=== PATIENT | male | born 1960 | race Caucasian/White ===

== ENCOUNTER → 2017-10-19 | Outpatient (CLI) | payer BC ==
--- NOTE | 2017-10-19 10:28 | P.STRESS ---
- Stress Test Note Stress Test Results/Findings: Exam Performed: NM stress cardiolite complete Exam Date: 10/19/17 Reason for Exam: Physical, CAD Height: 6 ft 3 in Weight: 131.542 kg Protocol: David Cardiolite Stage: 3 Duration of Exercise: 10:30 Resting Heart Rate: 77 Resting Blood Pressure: 127/91 Maximum Achieved Heart Rate: 145 Maximum Achieved Blood Pressure: 190/66 85% PMHR: 139 100% PMHR: 163 METS: 12.1 Technologist Comment: Stress Test Results/Findings: Baseline heart rate 77 beats a minute Baseline blood pressure 127/91 mmHg baseline 12-lead ECG shows normal sinus rhythm normal cardiac intervals next Patient exercised on a David protocol for 10 minutes 30 seconds, achieving a peak heart rate of 145 beats a minute, normal blood pressure response to exercise He was short of breath at peak exercise No ECG evidence for ischemia no arrhythmias Nuclear portion will be reported separately
--- NOTE | 2017-10-19 11:06 | NM ---
EXAMINATION TYPE: NM stress cardiolite complete DATE OF EXAM: 10/19/2017 COMPARISON: Previous exam 05/11/2010 HISTORY: Coronary artery disease TECHNIQUE: After the intravenous administration of 9.9 mCi Tc 99m Sestamibi - Rest images obtained 4 5 minutes post injection. The patient exercised using a LUCIO protocol and 1 minute prior to peak e xercise was injected with 26.1 mCi Tc 99m Sestamibi - Stress images obtained 20 minutes post injectio n. FINDINGS: Targeted heart rate was achieved during performance of the study. Review of stress and rest SPECT tiff ges demonstrates decreased radio from physical uptake along the inferior wall left ventricle on stres s as compared to rest images and also within the cardiac apex and inferolateral left ventricle. Minter d analysis shows normal wall motion with an estimated left ventricular ejection fraction of 50 %. IMPRESSION: Stress-induced left ventricular myocardial ischemia. A Yellow level critical message alert has been initiated for Paulino Cardoza Jr, DO via the [employer] Critical Results System on 10/19/2017 11:04 AM. This message alert has been sent to Paulino bonilla Jr, DO via the preferences provided by the clinician for the receipt of Radiology Critical Findin gs. Message ID [id number].
== END | disposition home or self-care (01) ==
LOC: RADNMMAIN 07:43
PROVIDERS: ATTEND Family Medicine
DX: I25.9 Chronic ischemic heart disease, unspecified (principal); I25.10 Atherosclerotic heart disease of native coronary artery without angina pectoris
CPT/HCPCS: 93017; 78452; A9500

== ENCOUNTER 2017-11-12 06:35 | Day surgery (SDC) | payer BC ==
[~2017-11-12 06:35] MED LIST: ALPRAZolam 0.25 MG TAB PO PRN; ALPRAZolam 0.5 MG TAB PO PRN; NITROGLYCERIN SL TABS 0.4 MG TAB SUBLINGUAL PRN; SODIUM CHLORIDE 0.9% 1,000 ML in EMPTY BAG 1 BAG IV ONE
[2017-11-12] MEDS ORDERED: ASPIRIN 325 MG TAB PO ONE (07:00)
[2017-11-12] MEDS ORDERED: ATORVASTATIN 80 MG TAB PO ONE (07:00)
[2017-11-12] MEDS ORDERED: VERAPAMIL 2.5 MG/ML 2 ML AMP ONE (07:15)
[2017-11-12] MEDS ORDERED: INSULIN ASPART 100 UNIT/ML 1 ML 10 ML VIAL SQ ONE (07:17)
[2017-11-12 07:27] LABS: Glucose,Whole Blood 211 mg/dL (75-99)
[2017-11-12] MEDS ORDERED: diphenhydrAMINE 50 MG/ML 1 ML VIAL ONE (07:32)
[2017-11-12] MEDS ORDERED: fentaNYL (PF) 50 MCG/ML 2 ML AMP ONE (07:33)
[2017-11-12] MEDS ORDERED: HEPARIN SODIUM 1,000 UN/ML (10ML VL) ONE (07:33)
[2017-11-12 07:35] LABS: Basophils % (A) 0 %; Eosinophils # (A) 0.2 k/uL (0-0.7); Eosinophils % (A) 3 %; HCT 43.6 % (39.0-53.0); HGB 14.8 gm/dL (13.0-17.5); Lymphocytes # (A) 2.5 k/uL (1.0-4.8); Lymphocytes % (A) 39 %; MCH 31.2 pg (25.0-35.0); Mean Platelet Volume 6.9; Monocytes # (A) 0.4 k/uL (0-1.0); Monocytes % (A) 7 %; Neutrophils # (A) 3.2 k/uL (1.3-7.7); Neutrophils % (A) 50 %; Platelet Count 177 k/uL (150-450); RBC 4.74 m/uL (4.30-5.90); RDW 12.9 % (11.5-15.5); WBC 6.5 k/uL (3.8-10.6)
[2017-11-12] MEDS ORDERED: diphenhydrAMINE 50 MG/ML 1 ML VIAL IVP ONE (07:36)
[2017-11-12] MEDS ORDERED: LIDOCAINE 1% (PF) 10MG/ML VIAL SQ ONE (07:36)
[2017-11-12] MEDS ORDERED: VERAPAMIL SYRINGE (5 MG/10 ML) IVP ONE (07:37)
[2017-11-12] MEDS ORDERED: fentaNYL (PF) 50 MCG/ML 2 ML AMP IVP ONE (07:37)
[2017-11-12] MEDS: MIDAZOLAM 2 MG/2 ML VIAL IVP ONE ×2 (07:38→07:51)
[2017-11-12] MEDS ORDERED: MIDAZOLAM 2 MG/2 ML VIAL ONE (07:38)
[2017-11-12 07:45] LABS: Anion Gap 9 mmol/L; Blood Urea Nitrogen 15 mg/dL (9-20); Calcium 9.4 mg/dL (8.4-10.2); Carbon Dioxide 26 mmol/L (22-30); Chloride 104 mmol/L (98-107); Glucose 218 mg/dL (74-99); Sodium 139 mmol/L (137-145)
[2017-11-12] MEDS ORDERED: NITROGLYCERIN 1000MCG/10ML SYRINGE INTRACORON ONE (07:53)
[2017-11-12] MEDS ORDERED: ADENOSINE 180 MG in SODIUM CHLORIDE 0.9% 30 ML IVP ONE (08:00)
[2017-11-12] MEDS ORDERED: ADENOSINE 90 MG in SODIUM CHLORIDE 0.9% 60 ML IVP ONE (08:00)
[2017-11-12] MEDS ORDERED: PRASUGREL 10 MG TAB ONE (08:16)
[2017-11-12] MEDS ORDERED: PRASUGREL 10 MG TAB PO ONE (08:21)
[2017-11-12] MEDS ORDERED: IOPAMIDOL-370 125ML BTL INJ ONE (08:25)
[2017-11-12] MEDS ORDERED: IOPAMIDOL-370 50ML BTL INJ ONE ×2 (08:37→08:38)
[2017-11-12] MEDS ORDERED: NITROGLYCERIN SL TABS 0.4 MG TAB SUBLINGUAL PRN (09:00)
[2017-11-12] MEDS ORDERED: RX INFO: IV CONTRAST WAS GIVEN 1 EACH MISC MISCELLANE PRN (09:00)
[2017-11-12] MEDS ORDERED: ATROPINE SULFATE 0.1 MG/ML 10ML SYRINGE IV PRN (09:00)
[2017-11-12] MEDS ORDERED: SODIUM CHLORIDE 0.9% 1,000 ML IV SCH (09:00)
[2017-11-12] MEDS ORDERED: ZOLPIDEM 5 MG TAB PO PRN (09:00)
[2017-11-12] MEDS ORDERED: MAG HYDROX/AL HYDROX/SIMETH 30 ML CUP PO PRN (09:00)
[2017-11-12 09:17] LABS: Glucose,Whole Blood 194 mg/dL (75-99)
--- NOTE | 2017-11-12 09:39 | CC ---
CARDIAC CATHETERIZATION REPORT Mr. Daly 57-year-old male with known history of hypertension, hyperlipidemia, diabetes mellitus, who presented with symptoms of dyspnea and chest discomfort, underwent a myocardial perfusion imaging that revealed evidence of inducible ischemia involving the inferoapical and lateral wall. In view of that, recommendation was made regarding cardiac catheterization. The procedure as well as the risks and the complications were discussed with the patient who is in full understanding and agreement. 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 Using Xylocaine anesthesia in the Seldinger technique, a 6-Telugu sheath was introduced in the right radial artery. Selective right and left coronary angiography performed using 5-Telugu 3.5 bend right and left Alfredo catheter. Multiple views of coronary artery including hemiaxial views obtained. Following that, angioplasty and stenting of the LAD was performed. Following that 5-Telugu tight pigtail catheter was introduced in the left ventricle and a 30-degree FISCHER view of the left ventricle was obtained. Following that, catheter and sheath were removed. Hemostasis was obtained with deployment of a TR band. There was no immediate complication. Patient is returned to his room in stable condition. Of note, the patient received intra-arterial verapamil as well as a total of 10,000 units of intravenous heparin. FINDINGS: LEFT MAIN: This is a large-sized vessel bifurcating left circumflex, left anterior descending artery. Left main coronary artery has no evidence of high-grade stenosis. LEFT ANTERIOR DESCENDING ARTERY: This is a large-sized vessel reaching toward the apex with a wraparound apex segment. It gives rise to a large diagonal branch. After the takeoff of the diagonal branch, there is an eccentric 60% to 70% stenosis. The rest of the vessel has no high-grade stenosis. LEFT CIRCUMFLEX: This is a nondominant vessel giving rise to large obtuse marginal branch. The left circumflex stented segment is involving the obtuse marginal branch is patent. There is mild intimal disease distal to the stent of 30% to 40%. RIGHT CORONARY ARTERY: This is a large dominant vessel bifurcating distally in PDA, posterolateral segment and branches. The stented segment in the proximal, mid and distal right coronary artery are patent with mild intimal disease of 20% without any evidence of high-grade stenosis. LEFT VENTRICULOGRAM: Left ventriculogram was performed in 30-degree FISCHER view and revealed mild hypokinesis with ejection fraction 50%. There was no significant mitral regurgitation. HEMODYNAMICS: There was no gradient across the aortic valve. The left ventricle end- diastolic pressure was 10 to 12 mmHg. CONCLUSION: 1. Borderline significant stenosis in the mid left anterior descending artery. 2. Mild disease in the right coronary artery and left circumflex. 3. Mildly impaired left ventricular systolic function. RECOMMENDATION: In view of finding anatomy, recommend proceeding with further evaluation of the LAD by iFR and depending on that, further recommendation will be made. Those findings and recommendation were discussed with the patient who is in full understanding and agreement. MMODL / IJN: [id number] /
--- NOTE | 2017-11-12 09:48 | LTR ---
November 12, 2017 Re: Thien Daly Dear Dr. Cardoza: I had the opportunity to perform cardiac catheterization and coronary angioplasty and stenting on Mr. Daly at [facility] on the 12 of November and a full copy of the procedure note will be forwarded to you. In brief, he was found to have a lesion involving the mid LAD and after measurement of the iFR and documenting hemodynamically significant lesion, he underwent stenting of that vessel. I am hopeful that this procedure will stabilize his status and I thank you again for allowing me the opportunity to participate in his care. Please feel free to call for any questions. Sincerely yours, MD CHIDI LenzL / FRANNYN: [id number] /
--- NOTE | 2017-11-12 09:48 | PTCA ---
PERCUTANEOUSTRANS CORORONARY ANGIOGRAPHY Mr. Daly is a 57-year-old male with a history of coronary artery disease who has been complaining of episode of chest discomfort and abnormal myocardial perfusion imaging underwent cardiac catheterization was found to have borderline significant disease involving the mid LAD. In view of that, recommendation was made regarding further evaluation of the lesion and depending on that possible angioplasty and stenting. The procedure as well as the risks and complications were discussed with the patient who is in full understanding and agreement. PROCEDURE: A 6-Japanese FL 3.5 guiding catheter introduced in the system. After cannulating the left main a Doppler flow wire was advanced positioned distally. Following that, iFR was measured at 87%. At that point, a 3.25 x 15 mm Xience Alpine stent was deployed postdilated at 16 atmospheres. Following that, the balloon was removed and a whisper J- wire was advanced into the diagonal branch and a 2.75 x 12 mm Trek balloon was advanced and 2 inflations at maximum of 10 atmospheres were done. Following that, the balloon and the guidewire were withdrawn back in the guiding catheter. Images were obtained and repeated. Those images reveal stable successful stenting. At that point, the guiding catheter, the balloon and the guidewire were removed and a left ventriculogram was performed. Following that, catheter and sheath were removed. Hemostasis was obtained with deployment of a TR band. There was no immediate complication. Patient was returned to his room in stable condition. Of note, the patient received 10,000 units of intravenous heparin as well as oral loading dose of Effient. He had chest discomfort and EKG changes with the inflation that resolved at that the end of the procedure. RESULTS: Successful stenting of the mid left anterior descending artery with reduction of stenosis from 70% with a positive iFR to 0%. RECOMMENDATION: Patient will be continued on aspirin, Effient, and statin. The importance of dual antiplatelet treatment were discussed with the patient and his family and are in full understanding and agreement. Duration of procedure is 71 minutes. MMODL / IJN: [id number] /
[2017-11-12 16:42] LABS: Glucose,Whole Blood 145 mg/dL (75-99)
[2017-11-12] MEDS: ASPIRIN 81 MG PO SCH (18:13)
[2017-11-12 18:38] VITALS: BMI 36.6
[2017-11-12 18:49] VITALS: RESP 16
[2017-11-12] MEDS ORDERED: HYDROcodone/APAP 10-325MG 1 EACH TAB PO PRN (20:19)
[2017-11-12 20:52] LABS: Glucose,Whole Blood 186 mg/dL (75-99)
[2017-11-12] MEDS: INSULIN ASPART 100 UNIT/ML 1 ML 10 ML VIAL SQ SCH (21:34)
[2017-11-13 05:47] VITALS: TEMP 96.5
[2017-11-13 05:57] LABS: Glucose,Whole Blood 175 mg/dL (75-99)
[2017-11-13] MEDS: INSULIN ASPART 100 UNIT/ML 1 ML 10 ML VIAL SQ SCH (06:24)
[2017-11-13 06:35] LABS: Anion Gap 6 mmol/L; Blood Urea Nitrogen 14 mg/dL (9-20); Calcium 8.6 mg/dL (8.4-10.2); Carbon Dioxide 26 mmol/L (22-30); Chloride 103 mmol/L (98-107); Glucose 158 mg/dL (74-99); Potassium 4.2 mmol/L (3.5-5.1); Sodium 135 mmol/L (137-145)
--- NOTE | 2017-11-13 07:16 | PN ---
PROGRESS NOTE Mr. Daly is a 57-year-old male with known history of coronary artery disease who presented with symptoms of chest discomfort and dyspnea and abnormal myocardial perfusion imaging, underwent cardiac catheterization, was found to have a lesion in the mid LAD with positive iFR, underwent stenting of that vessel. He is doing well this morning, ambulating without difficulty. Denying any chest pain. No dizziness. No palpitation. He has continued to be on aspirin once a day, Lipitor 80 mg daily, hydrochlorothiazide 25 mg daily, Tradjenta 5 mg daily, losartan 150 mg daily, Effient 10 mg daily. PHYSICAL EXAMINATION: Blood pressure is 130/60 with the heart rate in the 60s. LUNGS: Clear. HEART: Regular rate and rhythm. S1, S2. No S3. No rub. ABDOMEN: Soft, nontender. Right radial pulse intact. EXTREMITIES: No edema. LAB DATA: BUN and creatinine 14 and 0.8. Potassium 4.2. EKG no acute changes. IMPRESSION: 1. Status post stenting of the left anterior descending artery. 2. History of hypertension. 3. Hyperlipidemia. 4. Diabetes mellitus. RECOMMENDATION: Patient will be discharged home today and followed as an outpatient. MMODL / IJN: [id number] /
[2017-11-13] MEDS ORDERED: LOSARTAN 50 MG TAB PO SCH (09:00)
[2017-11-13] MEDS ORDERED: LINAGLIPTIN 5 MG TABLET PO SCH (09:00)
[2017-11-13] MEDS ORDERED: HYDROCHLOROTHIAZIDE 25 MG TAB PO SCH (09:00)
[2017-11-13] MEDS ORDERED: ATORVASTATIN 80 MG TAB PO SCH (09:00)
[2017-11-13] MEDS ORDERED: PRASUGREL 10 MG TAB PO SCH (09:01)
[2017-11-13] MEDS: ASPIRIN 81 MG PO SCH (09:02)
[2017-11-13 09:11] VITALS: BP 138/71; PULSE 71
== END 2017-11-13 09:13 | disposition home or self-care (01) ==
LOC: CATHCVL 06:35 → 6SEL 08:46 → CATHCVL 11-13 09:13
PROVIDERS: ATTEND Internal Medicine Interventional Cardiology
DX: I25.10 Atherosclerotic heart disease of native coronary artery without angina pectoris (principal); R94.39 Abnormal result of other cardiovascular function study; E11.9 Type 2 diabetes mellitus without complications; E78.2 Mixed hyperlipidemia; I10 Essential (primary) hypertension; Z95.5 Presence of coronary angioplasty implant and graft; Z82.49 Family history of ischemic heart disease and other diseases of the circulatory system; F17.210 Nicotine dependence, cigarettes, uncomplicated; Z79.84 Long term (current) use of oral hypoglycemic drugs; Z79.82 Long term (current) use of aspirin; Z79.899 Other long term (current) drug therapy; Z79.891 Long term (current) use of opiate analgesic
CPT/HCPCS: 93571; 93458; 85347; 80048 ×2; 85025; C9600; C1769 ×2; C1887; C1894; C1725; C1874; J2250; J1200; J3010; J1644 ×2; J0153; J2001; Q9967 ×2

== ENCOUNTER → 2020-11-01 | Outpatient (CLI) | payer BC ==
--- NOTE | 2020-11-01 13:43 | NM ---
EXAMINATION TYPE: NM stress cardiolite complete DATE OF EXAM: 11/01/2020 COMPARISON: 10/19/2017 HISTORY: Pain TECHNIQUE: After the intravenous administration of 10.2 mCi Tc 99m Sestamibi - Rest images obtained 65 minutes post injection. The patient exercised using a LUCIO protocol and 1 minute prior to peak exercise was injected with 24.9 mCi Tc 99m Sestamibi - Stress images obtained 25 minutes post injecti on. FINDINGS: Targeted heart rate was achieved during performance of the study. Review of stress and rest SPECT tiff ges demonstrates reduced uptake involving the inferior wall the myocardium.. Gated analysis shows no rmal wall motion with an estimated left ventricular ejection fraction of 60 %. IMPRESSION: 1. Ejection fraction of 46% correlate clinically. There appears to be a fixed defect involving the in ferior wall the myocardium. Tiny area of stress-induced reversibility could not be entirely excluded correlate clinically.
--- NOTE | 2020-11-01 14:48 | EST ---
EXERCISE STRESS AGE: 60 SEX: M HT: 6'3" WT: 274 lbs. PROTOCOL: David STAGE: 4 DURATION OF EXERCISE: 9:59 HEART RATE REST: 63 BLOOD PRESSURE REST: 121/74 MAXIMUM HEART RATE ACHIEVED: 141 MAXIMUM BLOOD PRESSURE: 200/83 85% MPHR: 136 100% MPHR: 160 METS: 11.3 RESULTS: Baseline rhythm sinus mechanism rate 63, normal axis, normal electrocardiogram. Baseline blood pressure 121/74 mmHg. The patient exercised on Dvaid protocol for 9 minutes 59 seconds reaching peak rate 141 beats per minute which is equal to 88% maximum predicted heart rate. Peak blood pressure 200/83 mmHg. Test was terminated secondary to fatigue. There was no chest pain. Electrocardiograph monitoring revealed occasional single PVCs. There was [address]-segment depression in the inferolateral leads that resolves gradually in recovery. CONCLUSION: 1. Good exercise tolerance with no chest discomfort. 2. Occasional single PVCs with rare couplets. 3. Positive electrocardiograph stress testing with 1.[address]-segment depression at peak exercise that resolved in recovery slowly suggestive of stress-induced ischemia. MMODL / IJN: [id number] /
== END | disposition home or self-care (01) ==
LOC: RADNMMAIN 08:12
PROVIDERS: ATTEND Family Medicine
DX: I49.3 Ventricular premature depolarization (principal)
CPT/HCPCS: 93017; 78452; A9500

== ENCOUNTER 2020-11-25 06:19 | Day surgery (SDC) | payer BC ==
[2020-11-23 13:44] VITALS: BMI 33.6
[2020-11-25] MEDS ORDERED: NITROGLYCERIN SL TABS 0.4 MG TAB SUBLINGUAL PRN ×2 (06:22→09:14)
[2020-11-25] MEDS ORDERED: ASPIRIN 325 MG TAB PO STA (06:22)
[2020-11-25] MEDS ORDERED: ALPRAZolam 0.25 MG TAB PO PRN (06:22)
[2020-11-25] MEDS ORDERED: HEPARIN SODIUM,PORCINE 10,000 UNIT in SODIUM CHLORIDE 0.9% 1,000 ML IRRIGATION PRN (06:22)
[2020-11-25] MEDS ORDERED: ATORVASTATIN 80 MG TAB PO STA (06:22)
[2020-11-25] MEDS ORDERED: ALPRAZolam 0.5 MG TAB PO PRN (06:22)
[2020-11-25] MEDS ORDERED: SODIUM CHLORIDE 0.9% 1,000 ML in EMPTY BAG 1 BAG IV ONE (06:22)
[2020-11-25] MEDS ORDERED: SODIUM CHLORIDE 0.9% 1,000 ML IV ONE (06:40)
[2020-11-25 07:06] VITALS: TEMP 99.2
[2020-11-25 07:06] LABS: Glucose,Whole Blood 173 mg/dL (75-99)
[2020-11-25] MEDS ORDERED: LIDOCAINE 1% INJ 10MG/ML (20 ML MDV) ONE (07:26)
[2020-11-25] MEDS ORDERED: fentaNYL (PF) 50 MCG/ML 2 ML AMP ONE (07:26)
[2020-11-25] MEDS ORDERED: VERAPAMIL 2.5 MG/ML 2 ML AMP ONE (07:26)
[2020-11-25] MEDS ORDERED: HEPARIN SODIUM 1,000 UN/ML (10ML VL) ONE ×2 (07:27→08:53)
[2020-11-25] MEDS ORDERED: fentaNYL (PF) 50 MCG/ML 2 ML AMP IV ONE (07:30)
[2020-11-25] MEDS: MIDAZOLAM 2 MG/2 ML VIAL IV ONE ×2 (07:36→07:46)
[2020-11-25] MEDS ORDERED: LIDOCAINE 1% INJ 10MG/ML (20 ML MDV) SQ ONE (07:40)
[2020-11-25] MEDS ORDERED: VERAPAMIL SYRINGE (5 MG/10 ML) INTRAARTER ONE (07:42)
[2020-11-25] MEDS: HEPARIN SODIUM 1,000 UN/ML (10ML VL) IV ONE ×3 (07:45→08:34)
[2020-11-25] MEDS ORDERED: CLOPIDOGREL 75 MG TAB ONE (07:55)
[2020-11-25] MEDS ORDERED: CLOPIDOGREL 75 MG TAB PO ONE (08:01)
[2020-11-25] MEDS ORDERED: IOPAMIDOL-370 125ML BTL INJ ONE (08:08)
[2020-11-25] MEDS: NITROGLYCERIN 1000MCG/10ML SYRINGE INTRACORON ONE ×2 (08:16→08:26)
[2020-11-25] MEDS ORDERED: IOPAMIDOL-370 100ML BTL INJ ONE ×2 (08:36→08:50)
[2020-11-25] MEDS ORDERED: RX INFO: IV CONTRAST WAS GIVEN 1 EACH MISC MISCELLANE PRN (09:14)
[2020-11-25] MEDS ORDERED: ZOLPIDEM 5 MG TAB PO PRN (09:14)
[2020-11-25] MEDS ORDERED: MAG HYDROX/AL HYDROX/SIMETH 30 ML CUP PO PRN (09:14)
[2020-11-25] MEDS ORDERED: ATROPINE SULFATE 0.1 MG/ML 10ML SYRINGE IV PRN (09:14)
[2020-11-25 09:15] VITALS: RESP 18
[2020-11-25] MEDS ORDERED: SODIUM CHLORIDE 0.9% 1,000 ML IV SCH (09:15)
--- NOTE | 2020-11-25 09:24 | CC ---
CARDIAC CATHETERIZATION REPORT Mr. Daly is a 60-year-old male with known history of hypertension, hyperlipidemia, diabetes mellitus, multivessel coronary angioplasty and stenting, who presented with symptoms of chest discomfort and underwent a myocardial perfusion imaging that revealed evidence of inducible ischemia involving the inferior wall. In view of that, recommendation was made regarding cardiac catheterization. The procedure as well as the risks and the complications were discussed with the patient who is in full understanding and agreement. 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 Using Xylocaine anesthesia and Seldinger technique, a 6-Bangladeshi sheath was introduced in the right radial artery. Selective right and left coronary angiography performed using 5-Bangladeshi 3.5 bend right and left Alfredo catheter. Multiple views of the coronary artery including hemiaxial views were obtained. Following that, 5-Bangladeshi tight pigtail catheter was introduced in the left ventricle and left ventricular end-diastolic pressure was calculated. Following that, catheter was removed x3. Images were reviewed. FINDINGS: LEFT MAIN: This is a large-sized vessel, bifurcating into left circumflex, left anterior descending artery, left main coronary artery has no evidence of high-grade stenosis. LEFT ANTERIOR DESCENDING ARTERY: This is a large-sized vessel reaching towards the apex with a wraparound apex segment giving rise to a large diagonal branch proximally the stented segment of the proximal LAD has 20% to 30% plaque. There is a 20% to 30% plaque at the takeoff of the diagonal branch. The rest of the vessel has no high-grade stenosis. LEFT CIRCUMFLEX: This is a large nondominant vessel giving rise to 2 obtuse marginal branches. The stented segment in the obtuse marginal branch is patent. There is plaque of about 50% in the first obtuse marginal branch, which is smaller in caliber. The rest of the vessel has no high-grade stenosis. RIGHT CORONARY ARTERY: This is a large dominant vessel bifurcating into PDA and posterolateral segment and branches. The right coronary artery mid stent is patent with a 20% to 30% in-stent restenosis. The distal stent has a 90% to 95% stenosis and there is another plaque long plaque and the branch of the PLV. The rest of the vessel has no high-grade stenosis. LEFT VENTRICULOGRAM: Left ventriculogram was not performed. HEMODYNAMICS: There was no gradient across the aortic valve. The ventricle end-diastolic pressure was 8-10 mmHg. CONCLUSION: 1. Significant stenosis involving the distal RCA and the right PLV. 2. Patent stent in the LAD and the second obtuse marginal branch. RECOMMENDATIONS: In view of findings and anatomy, I recommend proceeding with angioplasty and stenting of the RCA and the PLV. The procedure as well as the risks and the complications were discussed with the patient who is in full understanding and agreement. MMODL / IJN: [id number] /
--- NOTE | 2020-11-25 09:31 | PTCA ---
PERCUTANEOUSTRANS CORORONARY ANGIOGRAPHY Mr. Daly is a 60-year-old male with a known history of coronary artery disease who presented with symptoms of angina pectoris and a positive stress test, underwent cardiac catheterization and was found to have critical stenosis involving the distal right coronary artery and the right PLV. In view of that, recommendation was made regarding angioplasty and stenting. The procedure as well as the risks and the complications were discussed with the patient who is in full understanding and agreement. PROCEDURE: A 6-Turkmen FR4 guiding catheter introduced into the system. After cannulating the right coronary ostium, a 0.014 balanced medium weight J-wire was advanced and crossed the distal RCA but could not cross the right PLV lesion. At that point, a 0.014 Whisper J-wire with a SuperCross straight catheter were used to cross the PLV lesion. Subsequently that wire was exchanged through the microcatheter to a 0.014 balanced medium weight J-wire and the microcatheter was removed. Subsequently a 2.0 x 12 mm Trek balloon was advanced and 2 inflations at a maximum of 8 atmospheres were done in the PLV. After removing the balloon a 2.5 x 12 mm NC Trek balloon was advanced and inflation in the distal right coronary artery was performed at 10 atmospheres. Subsequently, the balloon was removed and attempts to advance a 2.0 x 23 mm Nabil resolute stent in the PLV was unsuccessful to cross the mid right coronary artery. That stent was removed and a Godzilla 6-Turkmen was advanced and with the help of the Godzilla, the stent was advanced, positioned and deployed and was dilated at 16 atmospheres. Following that, the balloon was removed and a 3.0 x 18 mm Xience Nile point was advanced into the distal right coronary artery and deployed and postdilated at 16 atmospheres. Following that, the balloon was removed and a 3.25 x 12 mm NC Trek balloon was advanced and 2 inflations at the stented segment in distal right coronary artery were performed at 12 atmospheres. After the last inflation, after appropriate wait, the balloon and the guidewire were withdrawn back in the guiding catheter. Images were obtained, repeated. Those images reveal stable successful stenting. At that point, the guiding catheter, the balloon and the guidewire were removed. The sheath was removed. Hemostasis was obtained with deployment of TR band. There was no immediate complication. Patient is returned to his room in stable condition. Of note, the patient had chest discomfort and EKG changes with the inflation. He received a total of 11,000 units of intravenous heparin. His ACT was followed. He received an oral loading dose of clopidogrel. RESULTS: 1. Successful stenting of the right PLV with reduction of stenosis of 99% to 0%. 2. Successful stenting of the distal right coronary artery with reduction of stenosis of 95% to 0%. RECOMMENDATIONS: Patient will be continued on aspirin, Plavix and statin. The importance of dual antiplatelet treatment were discussed with the patient and his family and they are in full understanding and agreement. Duration of sedation is 75 minutes. MMODL / IJN: [id number] / MTDDejah
--- NOTE | 2020-11-25 09:31 | LTR ---
DATE OF SERVICE: 11/24/[address] Cardoza: I had the pleasure of performing cardiac catheterization and coronary angioplasty and stenting on Mr. Daly at [facility] on the November 25 and a full copy of procedure note will be forwarded to you. In brief, he was found to have critical stenosis involving the distal right coronary artery and the right PLV, underwent stenting of both vessels. I am hopeful this procedure will stabilize his status. Thank you again for allowing me to participate in the care of this patient. Please feel free to call for any questions. Sincerely, BRANT / MORRIS: [id number] /
[2020-11-25 14:02] VITALS: BP 139/73; PULSE 80
[2020-11-26] MEDS ORDERED: NON FORMULARY DRUG (Olmesartan/Hydrochlorothiazide [Benicar Hct 40-25 Mg Tablet] 1 EACH Ta PO SCH (09:00)
[2020-11-26] MEDS ORDERED: PRAVASTATIN SODIUM 80 MG TAB PO SCH (09:00)
[2020-11-26] MEDS ORDERED: ASPIRIN 81 MG PO SCH (09:00)
[2020-11-26] MEDS ORDERED: CLOPIDOGREL 75 MG TAB PO SCH (09:00)
[2020-12-02] MEDS ORDERED: NON FORMULARY DRUG (Semaglutide [Ozempic] 1 MG/0.75 ML Pen.Injctr) SQ SCH (09:00)
== END 2020-11-25 13:50 | disposition home or self-care (01) ==
LOC: CATHCVL 06:19
PROVIDERS: ATTEND Internal Medicine Interventional Cardiology
DX: I25.10 Atherosclerotic heart disease of native coronary artery without angina pectoris (principal); T82.855A Stenosis of coronary artery stent, initial encounter; Y83.8 Other surgical procedures as the cause of abnormal reaction of the patient, or of later complication, without mention of misadventure at the time of the procedure; E11.9 Type 2 diabetes mellitus without complications; I10 Essential (primary) hypertension; Z82.49 Family history of ischemic heart disease and other diseases of the circulatory system; Z79.82 Long term (current) use of aspirin; Z79.899 Other long term (current) drug therapy; I07.1 Rheumatic tricuspid insufficiency; I49.3 Ventricular premature depolarization; I49.1 Atrial premature depolarization; E78.2 Mixed hyperlipidemia; Z87.891 Personal history of nicotine dependence
CPT/HCPCS: 93458; C9600; C9601; C1769 ×4; C1887 ×3; C1894; C1725 ×3; C1874 ×2; J2250; J2001; J3010; J1644; Q9967 ×2

== ENCOUNTER 2022-11-14 06:06 | Day surgery (SDC) | payer BC ==
[~2022-11-14 06:06] MED LIST changes: -SODIUM CHLORIDE 0.9% 1,000 ML in EMPTY BAG 1 BAG IV ONE; +SODIUM CHLORIDE 0.9% 1,000 ML in EMPTY BAG 1 BAG IV SCH
[2022-11-14 06:30] VITALS: RESP 18; TEMP 99.2
[2022-11-14 06:37] LABS: Glucose,Whole Blood 117 mg/dL (70-110)
[2022-11-14 06:52] LABS: ALT 28 U/L (4-49); AST 27 U/L (17-59); African American GFR (CKD) >90 (>60 ml/min/1.73 sqM); Albumin 4.3 g/dL (3.5-5.0); Alkaline Phosphatase 53 U/L (38-126); Anion Gap 9 mmol/L; Blood Urea Nitrogen 15 mg/dL (9-20); Calcium 9.5 mg/dL (8.4-10.2); Carbon Dioxide 28 mmol/L (22-30); Chloride 100 mmol/L (98-107); Glucose 118 mg/dL (74-99); Non-African American GFR(CKD) >90 (>60 ml/min/1.73 sqM); Potassium 3.7 mmol/L (3.5-5.1); Sodium 137 mmol/L (137-145); Total Bilirubin 0.5 mg/dL (0.2-1.3); Total Protein 6.9 g/dL (6.3-8.2)
[2022-11-14] MEDS ORDERED: ASPIRIN 325 MG TAB PO ONE (07:00)
[2022-11-14] MEDS ORDERED: VERAPAMIL 2.5 MG/ML 2 ML AMP ONE (07:09)
[2022-11-14] MEDS ORDERED: fentaNYL (PF) 50 MCG/ML 2 ML AMP ONE (07:10)
[2022-11-14] MEDS ORDERED: HEPARIN SODIUM 1,000 UN/ML (10ML VL) ONE ×2 (07:10→08:27)
[2022-11-14] MEDS ORDERED: fentaNYL (PF) 50 MCG/ML 2 ML AMP IVP ONE (07:55)
[2022-11-14] MEDS ORDERED: LIDOCAINE 1% INJ 10MG/ML (5 ML VIAL-PF) SQ ONE (07:59)
[2022-11-14] MEDS ORDERED: VERAPAMIL SYRINGE (5 MG/10 ML) INTRAARTER ONE ×2 (07:59→08:00)
[2022-11-14] MEDS ORDERED: MIDAZOLAM 2 MG/2 ML VIAL IVP ONE (08:00)
[2022-11-14] MEDS: HEPARIN SODIUM 1,000 UN/ML (10ML VL) IVP ONE ×4 (08:05→08:37)
[2022-11-14] MEDS ORDERED: CLOPIDOGREL 75 MG TAB ONE (08:09)
[2022-11-14] MEDS ORDERED: CLOPIDOGREL 75 MG TAB PO ONE (08:14)
[2022-11-14] MEDS ORDERED: IOPAMIDOL-370 200ML BTL INJ ONE (08:48)
[2022-11-14] MEDS ORDERED: NITROGLYCERIN SL TABS 0.4 MG TAB SUBLINGUAL PRN (09:03)
[2022-11-14] MEDS ORDERED: MAG HYDROX/AL HYDROX/SIMETH 30 ML CUP PO PRN (09:03)
[2022-11-14] MEDS ORDERED: ATROPINE SULFATE 0.1 MG/ML 10ML SYRINGE IV PRN (09:03)
[2022-11-14] MEDS ORDERED: ZOLPIDEM 5 MG TAB PO PRN (09:03)
[2022-11-14] MEDS ORDERED: RX INFO: IV CONTRAST WAS GIVEN 1 EACH MISC MISCELLANE PRN (09:03)
[2022-11-14] MEDS ORDERED: SODIUM CHLORIDE 0.9% 1,000 ML in EMPTY BAG 1 BAG IV SCH (09:15)
--- NOTE | 2022-11-14 09:15 | P.CARDCATH ---
Date of Procedure: 11/14/22 Description of Procedure: Cardiac Catheterization: The patient is a 62-year-old male known history of hypertension, hyperlipidemia, diabetes mellitus and multiple vessel PCI who presented with symptoms of chest discomfort and abnormal MPI. Recommendations were made regarding cardiac catheterization, the risks and the complications were discussed with the patient who is in full understanding and agreement. 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 Using Xylocaine Anesthesia and Seldinger technique, a 6-Algerian sheath was introduced in the right radial artery . Subsequently, selective coronary angiography was performed using a 5-Algerian 3.5 bend Alfredo catheter. Multiple views of the coronary artery including hemiaxial views were obtained. The left Alfredo catheter was used to cross the aortic valve and LVEDP was calculated. PCI: After removing the catheters a 6-Algerian 0.75 AL guiding catheter was introduced and the right coronary ostium was cannulated, subsequently 0.014 BMW J-wire was positioned in the distal RCA. A 3.0 x 12 mm NC Treck was advanced and multiple inflation at 12 kun were done subsequently a [employer] intravascular ultrasound catheter was introduced and images were obtained. After removing the catheter a 4.0 x 18 mm Xience Tiesha point stent was deployed at 16 kun, after removing the balloon a 4.0 x 15 mm NC Treck was advanced and inflations at 16 kun were done, repeat intravascular ultrasound was performed and subsequently a 4.0 x 15 mm balloon was reintroduced and repeat inflations were performed at 16 kun. After removing the balloon and the wire images were obtained and revealed stable successful stenting. Following that, catheter and sheath were removed. Hemostasis was obtained with deployment of TR band . There was no immediate complication. Patient was returned to room in stable condition. Of note, the patient received a total of 14,500 units of intravenous heparin as well as intra-arterial verapamil. His ACT was monitored. He received an oral loading dose of clopidogrel. He had chest discomfort and EKG changes that resolved at the end of the procedure. Findings: Left main: This is a large size vessel bifurcating into left circumflex and LAD, left main has no obstructive disease. LAD: This is a large size vessel, reaching to the apex, giving rise to a large diagonal branch. The stented segment in the mid LAD is patent with mild intimal restenosis of 20%, the rest of the vessel has no high-grade stenosis Left circumflex: This is a large nondominant vessel giving rise to 2 obtuse marginal branch. The stented segment is patent. There is a 50% stenosis in the first OM, unchanged compared to 202. RCA: This is a large dominant vessel, bifurcating into PDA and PLV. There is a 95% eccentric in-stent restenosis in the mid RCA. The mid and distal RCA has 30-40% plaque with no high-grade stenosis. There is no evidence of significant restenosis in the PLV. Left Ventriculogram: Not performed Hemodynamics: There was no gradient across the aortic valve , LVEDP was 16-18 mmHg Conclusion: 1. Significant in-stent restenosis of the mid RCA 2. Moderate disease of the OM 2 3. Mild disease in the LAD 4. Successful stenting of the mid RCA with reduction of stenosis from 95% to less than 5% with intravascular ultrasound imaging Recommendations: The patient will continue on aspirin and Plavix for 6 months with no interruption in addition to aggressive coronary risks modifications. The findings and the recommendations were discussed with the patient and the family and they were in full understanding and agreement. Duration of sedation is 52 minutes.
[2022-11-14 09:31] LABS: Basophils % (A) 0 %; Eosinophils # (A) 0.2 k/uL (0-0.7); Eosinophils % (A) 3 %; HCT 39.6 % (39.0-53.0); HGB 13.8 gm/dL (13.0-17.5); Lymphocytes # (A) 2.5 k/uL (1.0-4.8); Lymphocytes % (A) 30 %; MCH 32.2 pg (25.0-35.0); MCHC 34.9 g/dL (31.0-37.0); MCV 92.2 fL (80.0-100.0); Mean Platelet Volume 7.8; Monocytes # (A) 0.4 k/uL (0-1.0); Monocytes % (A) 4 %; Neutrophils # (A) 5.2 k/uL (1.3-7.7); Neutrophils % (A) 62 %; Platelet Count 204 k/uL (150-450); RBC 4.29 m/uL (4.30-5.90); RDW 12.6 % (11.5-15.5); WBC 8.4 k/uL (3.8-10.6)
[2022-11-14] MEDS ORDERED: SODIUM CHLORIDE 0.9% 500 ML 500 ML IV ONE (11:00)
[2022-11-14 12:04] LABS: Chol/HDL Ratio 4.43 Ratio; LDL Cholesterol,Calculated 75.2 mg/dL (0.0-131.0)
[2022-11-14 13:39] VITALS: BP 143/76; PULSE 76
[2022-11-14] MEDS ORDERED: NON FORMULARY DRUG (Insulin Glargine,Hum.Rec.Anlog [Lantus Solostar Pen] 100 UNIT/ML Insul SQ SCH (21:00)
[2022-11-14] MEDS ORDERED: NON FORMULARY DRUG (Olmesartan/Hydrochlorothiazide [Benicar Hct 40-25 Mg Tablet] 1 EACH Ta PO SCH (21:00)
[2022-11-14] MEDS ORDERED: PRAVASTATIN SODIUM 80 MG TAB PO SCH (21:00)
[2022-11-15] MEDS ORDERED: ASPIRIN 81 MG PO SCH (09:00)
[2022-11-15] MEDS ORDERED: CLOPIDOGREL 75 MG TAB PO SCH (09:00)
[2022-11-18] MEDS ORDERED: TIRZEPATIDE 10 MG/0.5 ML SQ SCH (09:05)
== END 2022-11-14 13:41 | disposition home or self-care (01) ==
LOC: CATHCVL 06:06
PROVIDERS: ATTEND Internal Medicine Interventional Cardiology
DX: I25.10 Atherosclerotic heart disease of native coronary artery without angina pectoris (principal); I10 Essential (primary) hypertension; E78.5 Hyperlipidemia, unspecified; E11.9 Type 2 diabetes mellitus without complications; F17.210 Nicotine dependence, cigarettes, uncomplicated; X58.XXXA Exposure to other specified factors, initial encounter; Z79.82 Long term (current) use of aspirin; Z79.899 Other long term (current) drug therapy; Z98.61 Coronary angioplasty status; Z96.652 Presence of left artificial knee joint; Z87.760 Personal history of (corrected) congenital diaphragmatic hernia or other congenital diaphragm malformations; Z79.84 Long term (current) use of oral hypoglycemic drugs; Z79.4 Long term (current) use of insulin
CPT/HCPCS: 92928; 92978; 93458; 80061; 80053; 85025; C9600; C1769 ×3; C1887; C1894; C1753; C1874; C1725 ×2; J2250; J2001; J3010; J1644; Q9967

== ENCOUNTER 2023-08-13 23:04 | Emergency (ER) | payer BC ==
--- NOTE | 2023-08-13 23:16 | ED ---
Chest Pain HPI - General Source: patient, RN notes reviewed Mode of arrival: ambulatory Limitations: no limitations <Fabienne Iqbal - Last Filed: 08/13/23 23:15> <Polina Ventura - Last Filed: 08/14/23 06:59> - General Stated Complaint: chest pain Time Seen by Provider: 08/13/23 23:15 - History of Present Illness Initial Comments: Quick note: 63-year-old male presented to the ER with a chief complaint of chest pain. Patient states this been ongoing for 2 weeks. He is endorsing mild shortness of breath. He states he has taken 2 nitros without relief. He has a heart catheterization scheduled tomorrow with Dr. Calderon (Fabienne Iqbal) - Related Data Home Medications Medication Instructions Recorded Confirmed HYDROcodone/APAP 10-325MG [[place] 1 tab PO Q6HR PRN 11/06/17 08/13/23 10-325] metFORMIN HCL [Glucophage] 1,000 mg PO BID 11/06/17 08/13/23 Insulin Glargine,Hum.rec.anlog 34 unit SQ HS 11/09/22 08/13/23 [Lantus Solostar Pen] Tirzepatide [Mounjaro] 10 mg SQ SA 11/09/22 08/13/23 Aspirin 325 mg PO DAILY 08/13/23 Rosuvastatin [Crestor] 20 mg PO HS 08/13/23 amLODIPine BES/OLMESARTAN MED 1 each PO DAILY 08/13/23 [amLODIPine BES/OLMESARTAN MED 5-40 mg] Previous Rx's Medication Instructions Recorded Nitroglycerin Sl Tabs [Nitrostat] 0.4 mg SUBLINGUAL Q5M PRN #25 tab 11/13/17 Clopidogrel [Plavix] 75 mg PO DAILY #90 tablet 11/14/22 Allergies Allergy/AdvReac Type Severity Reaction Status Date / Time No Known Allergies Allergy Verified 08/13/23 08:23 Review of Systems ROS Other: All systems not noted in ROS Statement are negative. <Fabienne Iqbal - Last Filed: 08/13/23 23:15> ROS Other: All systems not noted in ROS Statement are negative. <Polina Ventura - Last Filed: 08/14/23 06:59> ROS Statement: Those systems with pertinent positive or pertinent negative responses have been documented in the HPI. Past Medical History Past Medical History: Coronary Artery Disease (CAD), Chest Pain / Angina, Diabetes Mellitus, Hyperlipidemia, Hypertension, Myocardial Infarction ([place]) Additional Past Medical History / Comment(s): intermittent chest pain Last Myocardial Infarction Date:: 2009 History of Any Multi-Drug Resistant Organisms: None Reported Past Surgical History: Heart Catheterization With Stent, Hernia Repair, Orthopedic Surgery Additional Past Surgical History / Comment(s): ACL repair left knee. heart stent x8 Past Anesthesia/Blood Transfusion Reactions: No Reported Reaction Date of Last Stent Placement:: 2020 Smoking Status: Former smoker - Past Family History Mother Family Medical History: Cancer Sister(s) Family Medical History: Cancer Additional Family Medical History / Comment(s): breast. sister- [place] at age 58 Father Family Medical History: Myocardial Infarction ([place]) <Fabienne Iqbal - Last Filed: 08/13/23 23:15> General Exam <Fabienne Iqbal - Last Filed: 08/13/23 23:15> - General Exam Comments Initial Comments: Visual Physical Exam Vital signs reviewed General: Well-appearing, nontoxic, no acute distress. Head: Normocephalic, atraumatic Eyes: PERRLA, EOMI ENT: Airway patent Chest: Nonlabored breathing Skin: No visual rash, normal skin tone Neuro: Alert and oriented 3 Musculoskeletal: No gross abnormalities (Fabienne Iqbal) Course Vital Signs 08/13/23 08/14/23 23:18 04:58 Temperature 98.2 F Pulse Rate 84 80 Respiratory 18 18 Rate Blood Pressure 129/74 132/75 O2 Sat by Pulse 98 97 Oximetry Chest Pain MDM <Fabienne Iqbal - Last Filed: 08/13/23 23:15> <Polina Ventura - Last Filed: 08/14/23 06:59> - MDM I performed the quick note portion of this chart. Electronically signed by Fabienne Iqbal PA-C (Fabienne Iqbal) Was pt. sent in by a medical professional or institution ([facility], CREDIT ASSESSMENT ANALYST, urgent care, hospital, or penitentiary...) When possible be specific @ -[No] Did you speak to anyone other than the patient for history (EMS, parent, family, police, friend...)? What history was obtained from this source @ -[No] Did you review nursing and triage notes (agree or disagree)? Why? @ -[I reviewed and agree with nursing and triage notes] Were old charts reviewed (outside hosp., previous admission, EMS record, old EKG, old radiological studies, urgent care reports/EKG's, penitentiary records)? Report findings @ -[No old charts were reviewed] Differential Diagnosis (chest pain, altered mental status, abdominal pain women, abdominal pain men, vaginal bleeding, weakness, fever, dyspnea, syncope, headache, dizziness, GI bleed, back pain, seizure, CVA, palpatations, mental health, musculoskeletal)? @ -[not applicable] EKG interpreted by me (3pts min.). @ -Yes and demonstrates sinus rhythm with a rate of 85. OR interval 163. QRS 118. QTc of 406. Inverted T wave in lead III. No acute ST segment elevation X-rays interpreted by me (1pt min.). @ -[None done] CT interpreted by me (1pt min.). @ -[None done] U/S interpreted by me (1pt. min.). @ -[None done] What testing was considered but not performed or refused? (CT, X-rays, U/S, labs)? Why? @ -[None] What meds were considered but not given or refused? Why? @ -[None] Did you discuss the management of the patient with other professionals (professionals i.e. , PA, CREDIT ASSESSMENT ANALYST, lab, RT, psych nurse, addiction social worker, employment consultant, teacher, staff command and control officer, case loader operator)? Give summary @ -[No] Was smoking cessation discussed for >3mins.? @ -[No] Was critical care preformed (if so, how long)? @ -[No] Were there social determinants of health that impacted care today? How? (Homelessness, low income, unemployed, alcoholism, drug addiction, transportation, low edu. Level, literacy, decrease access to med. care, correction, rehab)? @ -[No] Was there de-escalation of care discussed even if they declined (Discuss DNR or withdrawal of care, Hospice)? DNR status @ -[No] What co-morbidities impacted this encounter? (DM, HTN, Smoking, COPD, CAD, Cancer, CVA, ARF, Chemo, Hep., AIDS, mental health diagnosis, sleep apnea, morbid obesity)? @ -[None] Was patient admitted / discharged? Hospital course, mention meds given and route, prescriptions, significant lab abnormalities, going to OR and other pertinent info. @ -[hospital course] Undiagnosed new problem with uncertain prognosis? @ -[No] Drug Therapy requiring intensive monitoring for toxicity (Heparin, Nitro, Insulin, Cardizem)? @ -[No] Were any procedures done? @ -[No] Diagnosis/symptom? @ -[default] Acute, or Chronic, or Acute on Chronic? @ -[default] Uncomplicated (without systemic symptoms) or Complicated (systemic symptoms)? @ -[default] Side effects of treatment? @ -[No] Exacerbation, Progression, or Severe Exacerbation? @ -[No] Poses a threat to life or bodily function? How? (Chest pain, [place], [place], pneumonia, PE, COPD, DKA, ARF, appy, cholecystitis, CVA, Diverticulitis, Homicidal, Suicidal, threat to staff... and all critical care pts) @ -[No] (Polina Ventura) Disposition <Fabienne Iqbal - Last Filed: 08/13/23 23:15> Is patient prescribed a controlled substance at d/c from ED?: No Time of Disposition: 04:39 <Polina Ventura - Last Filed: 08/14/23 06:59> Clinical Impression: Chest pain Disposition: HOME SELF-CARE Condition: Stable Instructions (If sedation given, give patient instructions): Chest Pain (ED) Additional Instructions: Please follow-up with your cath as scheduled Referrals: Paulino Cardoza Jr, [Primary Care Provider] - 1-2 days
[2023-08-13 23:24] VITALS: RESP 18; TEMP 98.2
[2023-08-13 23:53] LABS: Basophils # (A) 0.1 k/uL (0-0.2); Basophils % (A) 1 %; Eosinophils # (A) 0.2 k/uL (0-0.7); Eosinophils % (A) 2 %; HCT 39.9 % (39.0-53.0); HGB 13.5 gm/dL (13.0-17.5); Lymphocytes % (A) 37 %; MCH 31.4 pg (25.0-35.0); MCHC 33.7 g/dL (31.0-37.0); MCV 93.2 fL (80.0-100.0); Mean Platelet Volume 7.5; Monocytes # (A) 0.4 k/uL (0-1.0); Monocytes % (A) 5 %; Neutrophils # (A) 4.3 k/uL (1.3-7.7); Neutrophils % (A) 53 %; Platelet Count 221 k/uL (150-450); RBC 4.28 m/uL (4.30-5.90); RDW 12.7 % (11.5-15.5); WBC 8.1 k/uL (3.8-10.6)
[2023-08-14 00:26] LABS: ALT 30 U/L (4-49); AST 33 U/L (17-59); African American GFR (CKD) >90 (>60 ml/min/1.73 sqM); Albumin 4.5 g/dL (3.5-5.0); Alkaline Phosphatase 54 U/L (38-126); Anion Gap 10 mmol/L; Blood Urea Nitrogen 23 mg/dL (9-20); Calcium 9.7 mg/dL (8.4-10.2); Carbon Dioxide 24 mmol/L (22-30); Chloride 104 mmol/L (98-107); Glucose 134 mg/dL (74-99); Magnesium 1.8 mg/dL (1.6-2.3); Non-African American GFR(CKD) >90 (>60 ml/min/1.73 sqM); Potassium 4.2 mmol/L (3.5-5.1); Sodium 138 mmol/L (137-145); Total Bilirubin 0.6 mg/dL (0.2-1.3); Total Protein 7.2 g/dL (6.3-8.2)
[2023-08-14 00:34] LABS: Partial Thromboplastin Time 24.9 sec (22.0-30.0); Prothrombin Time 10.6 sec (10.0-12.5)
--- NOTE | 2023-08-14 00:50 | XR ---
EXAM: XR Chest, 2 Views CLINICAL HISTORY: ITS.REASON XR Reason: Chest Pain TECHNIQUE: Frontal and lateral views of the chest. COMPARISON: No relevant prior studies available. FINDINGS: Lungs: Azygos fissure. No consolidation. Pleural space: Unremarkable. No pneumothorax. Heart: Unremarkable. No cardiomegaly. Mediastinum: Unremarkable. Normal mediastinal contour. Bones/joints: Unremarkable. No acute fracture. IMPRESSION: No acute findings in the chest.
[2023-08-14 05:20] VITALS: BP 132/75; PULSE 80
== END 2023-08-14 04:58 | disposition home or self-care (01) ==
LOC: EC 23:04
DX: R07.9 Chest pain, unspecified (principal); Z87.891 Personal history of nicotine dependence
CPT/HCPCS: 36415; 71046; 80053; 83735; 84484; 85025; 85610; 85730; 93005; 99285

== ENCOUNTER 2023-08-14 10:03 | Observation (INO) | payer BC ==
--- NOTE | 2023-08-14 10:56 | ED ---
General Adult HPI - General Chief complaint: Chest Pain Stated complaint: Chest pain Time Seen by Provider: 08/14/23 10:40 Source: patient Mode of arrival: ambulatory Limitations: no limitations - History of Present Illness Initial comments: Is a 63-year-old male who presents emergency department for chest pain. This has been ongoing. Was seen last night for similar complaints. Patient has an extensive cardiac history. Follows up with Dr. Calderon. Was seen last night for chest pain and was due to have cardiac cath today. As there was no change in labs or anything, patient elected to go home as he had an outpatient cath scheduled for today. Has had continued chest pain for the last 3 weeks. It is improved over the last few days after starting long-acting nitro but is still persistent. Plan was for cardiac cath with Dr. Calderon today. However insurance did not authorize it. Patient is having continued chest pain with known significant cardiac history. Patient will be admitted for cardiac cath. - Related Data Home Medications Medication Instructions Recorded Confirmed HYDROcodone/APAP 10-325MG [[place] 1 tab PO Q6HR PRN 11/06/17 08/13/23 10-325] metFORMIN HCL [Glucophage] 1,000 mg PO BID 11/06/17 08/13/23 Insulin Glargine,Hum.rec.anlog 34 unit SQ HS 11/09/22 08/13/23 [Lantus Solostar Pen] Tirzepatide [Mounjaro] 10 mg SQ SA 11/09/22 08/13/23 Aspirin 325 mg PO DAILY 08/13/23 Rosuvastatin [Crestor] 20 mg PO HS 08/13/23 amLODIPine BES/OLMESARTAN MED 1 each PO DAILY 08/13/23 [amLODIPine BES/OLMESARTAN MED 5-40 mg] Previous Rx's Medication Instructions Recorded Nitroglycerin Sl Tabs [Nitrostat] 0.4 mg SUBLINGUAL Q5M PRN #25 tab 11/13/17 Clopidogrel [Plavix] 75 mg PO DAILY #90 tablet 11/14/22 Allergies Allergy/AdvReac Type Severity Reaction Status Date / Time No Known Allergies Allergy Verified 08/13/23 08:23 Review of Systems ROS Statement: Those systems with pertinent positive or pertinent negative responses have been documented in the HPI. Review of Systems: CONST: Denies fever EYES: Denies blurry vision ENT: Denies nasal congestion C/V: Endorses ongoing chest pain. RESP: Denies shortness of breath GI: Denies abdominal pain : Denies dysuria SKIN: Denies rash. MSK: Denies joint pain. NEURO: Denies headache ROS Other: All systems not noted in ROS Statement are negative. Past Medical History Past Medical History: Coronary Artery Disease (CAD), Chest Pain / Angina, Diabetes Mellitus, Hyperlipidemia, Hypertension, Myocardial Infarction ([place]) Additional Past Medical History / Comment(s): intermittent chest pain Last Myocardial Infarction Date:: 2009 History of Any Multi-Drug Resistant Organisms: None Reported Past Surgical History: Heart Catheterization With Stent, Hernia Repair, Orthopedic Surgery Additional Past Surgical History / Comment(s): ACL repair left knee. heart stent x8 Past Anesthesia/Blood Transfusion Reactions: No Reported Reaction Date of Last Stent Placement:: 2020 Past Psychological History: No Psychological Hx Reported Smoking Status: Former smoker Past Alcohol Use History: Occasional Past Drug Use History: None Reported - Past Family History Mother Family Medical History: Cancer Sister(s) Family Medical History: Cancer Additional Family Medical History / Comment(s): breast. sister- [place] at age 58 Father Family Medical History: Myocardial Infarction ([place]) General Exam - General Exam Comments Initial Comments: General: Appears in no acute distress. HEAD: Normal with no signs of head trauma. EYES: PERRLA, EOMI, conjunctiva normal, no discharge. ENT: Hearing grossly intact, normal oropharynx. RESPIRATORY: Clear breath sounds bilaterally. No wheezes, rales, or rhonchi. C/V: Regular rate and rhythm. S1 and S2 auscultated, no edema, peripheral pulses 2+ and intact throughout ABD: Abd is soft, nontender, nondistended EXT: Normal range of motion, no obvious deformity SKIN: No rashes or lesions observed on exposed skin. NEURO: Alert and oriented x 4. Limitations: no limitations Course Vital Signs 08/14/23 10:10 Temperature 98.5 F Pulse Rate 86 Respiratory 18 Rate Blood Pressure 127/83 O2 Sat by Pulse 97 Oximetry Medical Decision Making - Medical Decision Making Was pt. sent in by a medical professional or institution (, PA, PACKAGE DYER, urgent care, hospital, or fpc...) When possible be specific @ -Sent from [facility] by charging car operator Dr. Calderon for observation admission for cardiac cath. Did you speak to anyone other than the patient for history (EMS, parent, family, police, friend...)? What history was obtained from this source @ -No Did you review nursing and triage notes (agree or disagree)? Why? @ -I reviewed and agree with nursing and triage notes Were old charts reviewed (outside hosp., previous admission, EMS record, old EKG, old radiological studies, urgent care reports/EKG's, fpc records)? Report findings @ -Old chart reviewed from last night, which showed 2 indeterminate troponins. Remainder the workup unremarkable. Compared with EKG from today which was unch anged. Differential Diagnosis (chest pain, altered mental status, abdominal pain women, abdominal pain men, vaginal bleeding, weakness, fever, dyspnea, syncope, headache, dizziness, GI bleed, back pain, seizure, CVA, palpatations, mental health, musculoskeletal)? @ -Differential Chest Pain: Stable Angina, Unstable Angina, STEMI, NSTEMI Aortic Dissection, Pneumothorax, Musculoskeletal, Esophageal Spasm GERD, Cholecystitis, Pancreatitis, Zoster, this is not meant to be an all-inclusive list. EKG interpreted by me (3pts min.). @ -As above X-rays interpreted by me (1pt min.). @ -None done CT interpreted by me (1pt min.). @ -None done U/S interpreted by me (1pt. min.). @ -None done What testing was considered but not performed or refused? (CT, X-rays, U/S, labs)? Why? @ -None What meds were considered but not given or refused? Why? @ -None Did you discuss the management of the patient with other professionals (professionals i.e. , PA, PACKAGE DYER, lab, RT, psych nurse, manager social responsibility, bottle washer machine, teacher, correctional officer captain, correctional case manager)? Give summary @ -Discussed with charging car operator, Dr. Calderon who was in agreement with plan for admission observation and patient is ready for cardiac cath. States he will arrange for patient be transferred to [facility]. Was in agreement with plan for aspirin. I spoke with admitting physician, Dr. Cardoza who accepted the admission. Was smoking cessation discussed for >3mins.? @ -No Was critical care preformed (if so, how long)? @ -No Were there social determinants of health that impacted care today? How? (Homelessness, low income, unemployed, alcoholism, drug addiction, transportation, low edu. Level, literacy, decrease access to med. care, intermediate, rehab)? @ -No Was there de-escalation of care discussed even if they declined (Discuss DNR or withdrawal of care, Hospice)? DNR status @ -No What co-morbidities impacted this encounter? (DM, HTN, Smoking, COPD, CAD, Cancer, CVA, ARF, Chemo, Hep., AIDS, mental health diagnosis, sleep apnea, morbid obesity)? @ -CAD with multiple cardiac stents Was patient admitted / discharged? Hospital course, mention meds given and route, prescriptions, significant lab abnormalities, going to OR and other pe rtinent info. @ -Based on the patient's presentation and physical exam, presents emergency department complaining of ongoing chest pain for over a month. Was scheduled for cath this morning however was not covered by insurance but was instructed to come down here due to ongoing chest pain for admission for cardiac cath. Patient was seen last night with similar complaints and workup unremarkable and he elected to go home at that time. Vital signs are currently within acceptable limits. States chest pain is relatively controlled at this time, stating it has been worse. Presents for admission. We will obtain cardiac labs. I spoke with Dr. Calderon, the patient's charging car operator on the phone who was in agreement with plan for observation admission and I informed him that he is ready for [facility]. Labs were ordered and sent however I updated him on the results of labs from yesterday and he is in agreement the plan for cardiac cath. Patient made NPO. Patient admitted to Dr. Cardoza, who accepted the admission. Patient's labs returned remarkable for slight hyperglycemia of 160. Troponin remains indeterminate 0.013. Undiagnosed new problem with uncertain prognosis? @ -No Drug Therapy requiring intensive monitoring for toxicity (Heparin, Nitro, Insulin, Cardizem)? @ -No Were any procedures done? @ -No Diagnosis/symptom? @ -Chest pain Acute, or Chronic, or Acute on Chronic? @ -Acute on chronic Uncomplicated (without systemic symptoms) or Complicated (systemic symptoms)? @ -Complicated Side effects of treatment? @ -No Exacerbation, Progression, or Severe Exacerbation? @ -No Poses a threat to life or bodily function? How? (Chest pain, [place], [place], pneumonia, PE, COPD, DKA, ARF, appy, cholecystitis, CVA, Diverticulitis, Homicidal, Suicidal, threat to staff... and all critical care pts) @ -Yes - Lab Data Result diagrams: 08/14/23 11:18 08/14/23 11:18 Lab Results 08/14/23 08/14/23 08/14/23 Range/Units 11:18 11:18 11:18 WBC 6.5 (3.8-10.6) k/uL RBC 4.27 L (4.30-5.90) m/uL Hgb 13.6 (13.0-17.5) gm/dL Hct 39.4 (39.0-53.0) % MCV 92.5 (80.0-100.0) fL MCH 31.8 (25.0-35.0) pg MCHC 34.4 (31.0-37.0) g/dL RDW 12.9 (11.5-15.5) % Plt Count 197 (150-450) k/uL MPV 8.0 Neutrophils % 59 % Lymphocytes % 31 % Monocytes % 5 % Eosinophils % 2 % Basophils % 0 % Neutrophils # 3.8 (1.3-7.7) k/uL Lymphocytes # 2.0 (1.0-4.8) k/uL Monocytes # 0.4 (0-1.0) k/uL Eosinophils # 0.1 (0-0.7) k/uL Basophils # 0.0 (0-0.2) k/uL PT 10.9 (10.0-12.5) sec INR 1.0 (<1.2) APTT 25.0 (22.0-30.0) sec Sodium 137 (137-145) mmol/L Potassium 4.0 (3.5-5.1) mmol/L Chloride 104 (98-107) mmol/L Carbon Dioxide 26 (22-30) mmol/L Anion Gap 7 mmol/L BUN 19 (9-20) mg/dL Creatinine 0.70 (0.66-1.25) mg/dL Est GFR (CKD-EPI)AfAm >90 (>60 ml/min/1.73 sqM) Est GFR (CKD-EPI)NonAf >90 (>60 ml/min/1.73 sqM) Glucose 160 H (74-99) mg/dL Calcium 9.4 (8.4-10.2) mg/dL Magnesium 1.7 (1.6-2.3) mg/dL Total Bilirubin 0.6 (0.2-1.3) mg/dL AST 29 (17-59) U/L ALT 27 (4-49) U/L Alkaline Phosphatase 52 (38-126) U/L Troponin I (0.000-0.034) ng/mL Total Protein 6.8 (6.3-8.2) g/dL Albumin 4.2 (3.5-5.0) g/dL 08/14/23 Range/Units 11:18 WBC (3.8-10.6) k/uL RBC (4.30-5.90) m/uL Hgb (13.0-17.5) gm/dL Hct (39.0-53.0) % MCV (80.0-100.0) fL MCH (25.0-35.0) pg MCHC (31.0-37.0) g/dL RDW (11.5-15.5) % Plt Count (150-450) k/uL MPV Neutrophils % % Lymphocytes % % Monocytes % % Eosinophils % % Basophils % % Neutrophils # (1.3-7.7) k/uL Lymphocytes # (1.0-4.8) k/uL Monocytes # (0-1.0) k/uL Eosinophils # (0-0.7) k/uL Basophils # (0-0.2) k/uL PT (10.0-12.5) sec INR (<1.2) APTT (22.0-30.0) sec Sodium (137-145) mmol/L Potassium (3.5-5.1) mmol/L Chloride (98-107) mmol/L Carbon Dioxide (22-30) mmol/L Anion Gap mmol/L BUN (9-20) mg/dL Creatinine (0.66-1.25) mg/dL Est GFR (CKD-EPI)AfAm (>60 ml/min/1.73 sqM) Est GFR (CKD-EPI)NonAf (>60 ml/min/1.73 sqM) Glucose (74-99) mg/dL Calcium (8.4-10.2) mg/dL Magnesium (1.6-2.3) mg/dL Total Bilirubin (0.2-1.3) mg/dL AST (17-59) U/L ALT (4-49) U/L Alkaline Phosphatase (38-126) U/L Troponin I 0.013 (0.000-0.034) ng/mL Total Protein (6.3-8.2) g/dL Albumin (3.5-5.0) g/dL - EKG Data -: EKG Interpreted by Me EKG Comments: 12-lead Electrocardiogram Interpretation Note EKG was reviewed and interpreted by myself. 12-lead ECG performed at 1103 is interpreted by me as revealing normal sinus rhythm at a rate of 80 beats per m inute. [place] Heart is normal. SC interval is 178 ms, QRS duration is 117 ms, QTc is 420 ms.. There were no ST or T wave abnormalities to suggest myocardial ischemia or injury. R wave progression across the precordium was satisfactory. By my interpretation this EKG is non-diagnostic for acute ischemia. Disposition Clinical Impression: Chest pain Disposition: ADMITTED IP TO THIS HOSP Condition: Stable Referrals: Paulino Cardoza Jr, [Primary Care Provider] - 1-2 days Time of Disposition: 11:25
[2023-08-14] MEDS ORDERED: NALOXONE 0.4 MG/ML 1 ML VIAL IV PRN (11:24)
[2023-08-14] MEDS: ASPIRIN 81 MG PO STA (11:27)
[2023-08-14] MEDS: SODIUM CHLORIDE 0.9% 1,000 ML IV SCH (11:27)
[2023-08-14] MEDS: ATORVASTATIN 80 MG TAB PO ONE (11:27)
[2023-08-14 11:33] LABS: Prothrombin Time 10.9 sec (10.0-12.5)
[2023-08-14 11:34] LABS: ALT 27 U/L (4-49); AST 29 U/L (17-59); African American GFR (CKD) >90 (>60 ml/min/1.73 sqM); Albumin 4.2 g/dL (3.5-5.0); Alkaline Phosphatase 52 U/L (38-126); Anion Gap 7 mmol/L; Blood Urea Nitrogen 19 mg/dL (9-20); Calcium 9.4 mg/dL (8.4-10.2); Carbon Dioxide 26 mmol/L (22-30); Chloride 104 mmol/L (98-107); Glucose 160 mg/dL (74-99); Magnesium 1.7 mg/dL (1.6-2.3); Non-African American GFR(CKD) >90 (>60 ml/min/1.73 sqM); Sodium 137 mmol/L (137-145); Total Bilirubin 0.6 mg/dL (0.2-1.3); Total Protein 6.8 g/dL (6.3-8.2)
[2023-08-14 11:35] LABS: Basophils % (A) 0 %; Eosinophils # (A) 0.1 k/uL (0-0.7); Eosinophils % (A) 2 %; HCT 39.4 % (39.0-53.0); HGB 13.6 gm/dL (13.0-17.5); Lymphocytes % (A) 31 %; MCH 31.8 pg (25.0-35.0); MCHC 34.4 g/dL (31.0-37.0); MCV 92.5 fL (80.0-100.0); Monocytes # (A) 0.4 k/uL (0-1.0); Monocytes % (A) 5 %; Neutrophils # (A) 3.8 k/uL (1.3-7.7); Neutrophils % (A) 59 %; Platelet Count 197 k/uL (150-450); RBC 4.27 m/uL (4.30-5.90); RDW 12.9 % (11.5-15.5); WBC 6.5 k/uL (3.8-10.6)
[2023-08-14] MEDS: fentaNYL (PF) 50 MCG/1 ML VIAL IVP ONE (11:56)
[2023-08-14] MEDS: LIDOCAINE 1% INJ 10MG/ML (20 ML MDV) SQ ONE (11:57)
[2023-08-14] MEDS: SODIUM CHLORIDE 0.9% 900 ML IV ONE (11:57)
[2023-08-14] MEDS: VERAPAMIL SYRINGE (5 MG/10 ML) INTRAARTER ONE (11:59)
[2023-08-14] MEDS: MIDAZOLAM 2 MG/2 ML VIAL IVP ONE ×2 (12:00→12:26)
[2023-08-14] MEDS: HEPARIN SODIUM 1,000 UN/ML (10ML VL) IVP ONE ×2 (12:02→12:17)
[2023-08-14] MEDS: IOPAMIDOL-370 100ML BTL INJ ONE ×2 (12:16→12:50)
[2023-08-14] MEDS ORDERED: RX INFO: IV CONTRAST WAS GIVEN 1 EACH MISC MISCELLANE PRN (13:59)
[2023-08-14] MEDS ORDERED: MAG HYDROX/AL HYDROX/SIMETH 30 ML CUP PO PRN (13:59)
[2023-08-14] MEDS ORDERED: ZOLPIDEM 5 MG TAB PO PRN (13:59)
[2023-08-14] MEDS ORDERED: NITROGLYCERIN SL TABS 0.4 MG TAB SUBLINGUAL PRN (13:59)
[2023-08-14] MEDS ORDERED: ATROPINE SULFATE 0.1 MG/ML 10ML SYRINGE IV PRN (13:59)
[2023-08-14] MEDS: SODIUM CHLORIDE 0.9% 1,000 ML in EMPTY BAG 1 BAG IV SCH (14:54)
[2023-08-14 17:06] LABS: Glucose,Whole Blood 104 mg/dL (70-110)
--- NOTE | 2023-08-14 17:56 | P.CARDCATH ---
Date of Procedure: 08/14/23 Description of Procedure: Cardiac Catheterization: The patient is a 63-year-old male with a known history of CAD status post multiple stenting who presented to the emergency room with symptoms of chest discomfort. He has started to have exertional chest pain few weeks ago and has been having rest pain. Recommendations were made regarding cardiac catheterization, the risks and the complications were discussed with the patient who is in full understanding and agreement. Procedure Description: Patient was brought to lab systems analyst in fasting semi-sedated state after receiving Fentanyl and Benadryl achieiving moderate conscious sedated state. Using Xylocaine Anesthesia and modified Seldinger technique, a 6-Dominican sheath was introduced in the right radial artery . Subsequently, selective coronary angiography was performed using a 5-Dominican 3.5 bend Alfredo catheter. Multiple views of the coronary artery including hemiaxial views were obtained. The 5 Dominican pigtail catheter was used to cross the aortic valve and LVEDP was calculated. PCI: After removing the catheters a 6 Dominican AL 0.75 guiding catheter was introduced and after cannulating the left right coronary ostium a 0.014 BMW J-wire was positioned in the distal RCA. Subsequently a 2.5 x 12 mm trek balloon was advanced and inflations at 8 kun were done. Attempt to advance a Natural Dentist Kingfisher eye IVUS catheter through the lesion were unsuccessful. After removing the catheter a 3.0 x 12 mm NC trek balloon was advanced and inflation up to 14 kun were done. Subsequently IVUS imaging were obtained and revealed the distal segment diameter of 3.5-3.75 mm in diameter with evidence of in-stent restenosis. Following that a 3.5 x 18 Xience daniel point stent was deployed at 16 kun. Repeat IVUS imaging was performed and following that a 3.5 x 15 mm NC trek balloon was advanced and inflations up to 14 kun were done. After removing the wire images were obtained and revealed stable successful stenting. Following that, catheter and sheath were removed. Hemostasis was obtained with deployment of vascular band . There was no immediate complication. Patient was returned to room in stable condition. Of note, the patient received a total of 9500 units of intravenous heparin as well as intra-arterial verapamil. He was continued on clopidogrel. He had chest discomfort that resolved at the end of the procedure but no significant EKG changes. Findings: Left main: This is a large size vessel, bifurcating into LAD and left circumflex, left main has no obstructive disease. LAD: This is a large size vessel, reaching to the apex, giving rise to a large diagonal branch the LAD in the proximal and mid segment has 20 to 30% plaque with no high-grade stenosis Left circumflex: This is a nondominant vessel giving rise to 2 obtuse marginal branch. The stented second obtuse marginal branch segment is patent but distal to the stent there is an area of stenosis up to 80% in the first obtuse marginal branch has another 80% stenosis proximally. The caliber of the vessel is small to moderate. RCA: This is a large size vessel bifurcating distally to PDA and PLV. The mid and distal vessel is stented. There is a 30% plaque proximally and another 30 to 40% plaque in the midsegment. The distal vessel prior to the bifurcation has a 99% stenosis. There is diffuse intimal disease in the PLV. There is collateral from the left coronary system toward the right coronary artery Left Ventriculogram: Not performed Hemodynamics: There was no gradient across aortic valve, LVEDP was 8-12 mmHg Conclusion: 1. Severe in-stent restenosis in the distal RCA with mild disease in the proximal and mid segment 2. Severe disease in the first and second obtuse marginal branch 3. Mild disease in the LAD 4. Successful stenting of the distal RCA with reduction of stenosis from 99% to less than 5% with IVUS imaging and BHASKAR-3 flow Recommendations: The patient will continue on aspirin and clopidogrel for 6 months without any interruption. He will be evaluated regarding the need to undergo reevaluation and revascularization of his first and second obtuse marginal branch. Aggressive coronary risks modification with maintaining LDL below 70 mg/dL will be done. The findings and the recommendations were discussed with the patient and the family and they were in full understanding and agreement. Duration of sedation is 65 minutes.
[2023-08-14 20:59] LABS: Glucose,Whole Blood 101 mg/dL (70-110)
[2023-08-14] MEDS: ACETAMINOPHEN TAB 500 MG TAB PO PRN (21:12)
[2023-08-14] MEDS: INSULIN DETEMIR (LEVEMIR) 100 UNIT/ML SYR SQ SCH (21:15)
[2023-08-15 05:25] LABS: Glucose,Whole Blood 91 mg/dL (70-110)
[2023-08-15 08:37] LABS: ALT 26 U/L (4-49); AST 27 U/L (17-59); African American GFR (CKD) >90 (>60 ml/min/1.73 sqM); Albumin 3.8 g/dL (3.5-5.0); Albumin/Globulin Ratio 1.4; Alkaline Phosphatase 50 U/L (38-126); Anion Gap 4 mmol/L; Blood Urea Nitrogen 11 mg/dL (9-20); Calcium 9.3 mg/dL (8.4-10.2); Carbon Dioxide 26 mmol/L (22-30); Chloride 106 mmol/L (98-107); Globulin 2.7 g/dL; Glucose 110 mg/dL (74-99); Non-African American GFR(CKD) >90 (>60 ml/min/1.73 sqM); Potassium 4.3 mmol/L (3.5-5.1); Sodium 136 mmol/L (137-145); Total Bilirubin 0.5 mg/dL (0.2-1.3); Total Protein 6.5 g/dL (6.3-8.2)
[2023-08-15 08:57] VITALS: BP 118/73; PULSE 77; RESP 16; TEMP 98.1
[2023-08-15] MEDS: LOSARTAN 50 MG TAB PO SCH (09:24)
[2023-08-15] MEDS: ASPIRIN 81 MG PO SCH (09:24)
[2023-08-15] MEDS: CLOPIDOGREL 75 MG TAB PO SCH (09:24)
[2023-08-15] MEDS: ISOSORBIDE MONONITRATE ER 30 MG TAB.ER.24H PO SCH (09:24)
[2023-08-15] MEDS: BISOPROLOL-HCTZ 5-6.25 MG 1 EACH TAB PO SCH (09:24)
--- NOTE | 2023-08-15 09:42 | P.PN ---
Subjective Progress Note Date: 08/15/23 History of present illness: This is a 63-year-old male patient of Dr. Calderon with past medical history of coronary artery disease, diabetes mellitus type 2, dyslipidemia, hypertension, mild aortic valve stenosis. Yesterday, patient underwent cardiac catheterization which revealed severe in-stent restenosis in the distal RCA with mild disease in the proximal and mid segment, severe disease in the first and second obtuse marginal branch, mild disease in the LAD. Patient underwent successful stenting of the distal RCA. Patient is seen this morning in follow- up. He denies having any chest pain or shortness of breath. He states he has been ambulating without any symptoms. No lightheadedness or dizziness. Physical examination: Gen: This is a 63-year-old male in no acute distress VS: reviewed HEENT: Head is atraumatic, normocephalic. Pupils equal, round. Sclerae is anicteric. NECK: Supple. No JVD. LUNGS: Clear to auscultation. No wheezes or rhonchi. No intercostal retractions. HEART: Regular rate and rhythm. 2/6 systolic murmur at the base. ABDOMEN: Soft No tenderness. EXTREMITIES: No pedal edema. No calf tenderness. NEUROLOGICAL: Patient is awake, alert and oriented x3. Assessment: Exertional chest pain secondary to coronary artery disease History of coronary artery disease Diabetes mellitus type 2 Dyslipidemia Hypertension Mild aortic valve stenosis Plan: Continue patient's home cardiac medications Prescriptions have been sent to his pharmacy Patient is cleared for discharge from cardiology and will follow-up with Dr. Calderon in the office and to weeks. Nurse practitioner note has been reviewed, I agree with documented findings and plan of care. Patient was seen and examined. Objective - Vital Signs Vital signs: Vital Signs Temp 97.6 F 08/15/23 00:29 Pulse 68 08/15/23 00:29 Resp 15 08/15/23 00:29 BP 118/66 08/15/23 00:29 Pulse Ox 99 08/15/23 00:29 FiO2 Intake & Output 08/14/23 08/15/23 08/15/23 18:59 06:59 18:59 Intake Total 550 Balance 550 Weight 120.202 kg Intake: IV 550 Other: # Voids 2 - Labs CBC & Chem 7: 08/14/23 11:18 08/15/23 08:03 Labs: Abnormal Lab Results - Last 24 Hours (Table) 08/14/23 08/14/23 Range/Units 11:18 11:18 RBC 4.27 L (4.30-5.90) m/uL Glucose 160 H (74-99) mg/dL
[2023-08-15 10:21] LABS: Basophils # (A) 0.03 X 10*3/uL (0.00-0.10); Basophils % (A) 0.5 %; Eosinophils # (A) 0.14 X 10*3/uL (0.04-0.35); Eosinophils % (A) 2.2 %; HGB 13.7 g/dL (13.0-17.0); Lymphocytes # (A) 2.04 X 10*3/uL (0.90-5.00); Lymphocytes % (A) 32.1 %; MCH 31.6 pg (27.0-32.0); MCHC 34.3 g/dL (32.0-37.0); MCV 92.2 FL (80.0-97.0); Mean Platelet Volume 10.4 FL (9.5-12.2); Monocytes # (A) 0.46 X 10*3/uL (0.20-1.00); Monocytes % (A) 7.2 %; NRBC Per 100 WBC 0 X 10*3/uL (0.00-0.01); Neutrophils # (A) 3.67 X 10*3/uL (1.80-7.70); Neutrophils % (A) 57.7 %; Platelet Count 187 X 10*3/uL (140-440); RBC 4.34 X 10*6/uL (4.40-5.60); RDW 12.2 % (11.5-14.5); WBC 6.36 X 10*3/uL (4.50-10.00)
--- NOTE | 2023-08-15 11:32 | P.HPIM ---
History of Present Illness H&P Date: 08/15/23 Chief Complaint: Chest pain History and Physical and Discharge Summary This is a 63-year-old gentleman with past medical history significant for CAD, [place], multiple stents diabetes mellitus type 2, dyslipidemia, hypertension, mild aortic valve stenosis, presented to the ER with worsening chest pain over the last week.Underwent cardiac catheterization yesterday reporting severe in-stent restenosis of the distal RCA with mild disease of the proximal and mid segment, severe disease in the first and second obtuse marginal branch, mild disease in the LAD; successful stenting of the distal RCA. Ambulated in the hallway, tolerated exertion well, denies further chest pain, palpitations or shortness of breath. Maintaining O2 sats in the high 90s on room air. Maintaining O2 sats in the high 90s on room air. Denies lightheadedness dizziness or focal deficits. Review of Systems ROS Statement: Those systems with pertinent positive or pertinent negative responses have been documented in the HPI. ROS Other: All systems not noted in ROS Statement are negative. Past Medical History Past Medical History: Coronary Artery Disease (CAD), Chest Pain / Angina, Diabetes Mellitus, Hyperlipidemia, Hypertension, Myocardial Infarction ([place]) Additional Past Medical History / Comment(s): intermittent chest pain Last Myocardial Infarction Date:: 2009 History of Any Multi-Drug Resistant Organisms: None Reported Past Surgical History: Heart Catheterization With Stent, Hernia Repair, Orthopedic Surgery Additional Past Surgical History / Comment(s): ACL repair left knee. heart stent x8 Past Anesthesia/Blood Transfusion Reactions: No Reported Reaction Date of Last Stent Placement:: 2020 Past Psychological History: No Psychological Hx Reported Additional Psychological History / Comment(s): Pt resides spouse of 41 yrs. Smoking Status: Former smoker Past Alcohol Use History: Occasional Additional Past Alcohol Use History / Comment(s): Started smoking in 1976 smoked up to 3ppd for 20 yrs. Past Drug Use History: None Reported Additional Drug Use History / Comment(s): USES MARIJUANA ON OCCASION-AWARE NOT TO USE 24 HOURS PRIOR TO PROCEDURE - Past Family History Mother Family Medical History: Cancer Sister(s) Family Medical History: Cancer Additional Family Medical History / Comment(s): breast. sister- [place] at age 58 Father Family Medical History: Myocardial Infarction ([place]) Medications and Allergies Home Medications Medication Instructions Recorded Confirmed Type HYDROcodone/APAP 10-325MG [Madrid 1 tab PO Q6HR PRN 08/07/18 05/14/24 History 10-325] metFORMIN HCL [Glucophage] 1,000 mg PO BID 11/06/17 08/14/23 History Nitroglycerin Sl Tabs [Nitrostat] 0.4 mg SUBLINGUAL Q5M PRN #25 tab 11/13/17 08/14/23 Rx Insulin Glargine,Hum.rec.anlog 27 unit SQ HS 11/09/22 08/14/23 History [Lantus Solostar Pen] Tirzepatide [Mounjaro] 10 mg SQ SA 11/09/22 08/14/23 History Rosuvastatin [Crestor] 20 mg PO HS 08/13/23 08/14/23 History Bisoprolol/Hydrochlorothiazide 1 tab PO DAILY 08/14/23 08/14/23 History [Bisoprolol/Hydrochlorothiazide 5-6.25 mg] Isosorbide Mononitrate ER [Imdur] 30 mg PO DAILY 08/14/23 08/14/23 History Olmesartan Medoxomil [Benicar] 40 mg PO DAILY 08/14/23 08/14/23 History Sildenafil Citrate [Viagra] 100 mg PO DAILY PRN 08/14/23 08/14/23 History amLODIPine [Norvasc] 5 mg PO DAILY 08/14/23 08/14/23 History Aspirin 81 mg PO DAILY tab 08/15/23 Rx Clopidogrel [Plavix] 75 mg PO DAILY #90 tab 08/15/23 Rx Allergies Allergy/AdvReac Type Severity Reaction Status Date / Time No Known Allergies Allergy Verified 08/13/23 08:23 Physical Exam Vitals: Vital Signs Temp Pulse Pulse Resp BP BP Pulse Ox 08/15/23 07:00 98.1 F 77 16 118/73 97 08/15/23 00:29 97.6 F 68 15 118/66 99 08/14/23 19:49 98.1 F 81 16 128/68 97 08/14/23 17:44 70 116/70 95 08/14/23 16:44 71 123/75 97 08/14/23 15:43 66 113/70 99 08/14/23 15:13 98.1 F 68 15 127/61 97 08/14/23 14:44 82 16 122/74 97 08/14/23 14:00 70 18 120/70 98 08/14/23 13:45 72 18 114/72 97 08/14/23 13:20 74 18 128/68 98 08/14/23 13:05 74 18 141/76 98 Intake and Output 08/14/23 08/15/23 08/15/23 22:59 06:59 14:59 Intake Total 480 Balance 480 Intake: Oral 480 Other: # Voids 1 2 Weight 120.202 kg PHYSICAL EXAM: VITAL SIGNS: [As above] GENERAL: Alert and oriented x 3, sitting up in bed, no acute distress HEENT: Normocephalic, atraumatic conjunctivae normal. eyes normal. NECK: Supple, no JVD. No thyroid enlargement. No LNs CARDIOVASCULAR: S1, S2 regular. No murmur RESPIRATION: Unlabored, equal air entry.CTA ABDOMEN: Soft, nondistended, nontender. No guarding. no masses palpable. No ascites, No hepatosplenomegaly.+BS. LEGS: No edema. no swelling NERVOUS SYSTEM: Cranial N 2-12 grossly normal. No focal deficits. Strength and sensation grossly intact. Skin: Warm and dry, no rash Results CBC & Chem 7: 08/15/23 08:03 08/15/23 08:03 Labs: Abnormal Lab Results - Last 24 Hours (Table) 08/14/23 08/14/23 08/15/23 Range/Units 11:18 11:18 08:03 RBC 4.27 L (4.30-5.90) m/uL Sodium 136 L (137-145) mmol/L Glucose 160 H 110 H (74-99) mg/dL 08/15/23 Range/Units 08:03 RBC 4.34 L (4.30-5.90) m/uL Sodium (137-145) mmol/L Glucose (74-99) mg/dL Assessment and Plan Assessment: Chest pain secondary to CAD status post cardiac catheterization with stenting of the distal RCA History of coronary artery disease Mild aortic valve stenosis Diabetes mellitus type 2 Hypertension Dyslipidemia Plan: Continue on current medication regimen ,monitoring and symptomatic treatment. Evaluated by cardiology this morning post catheterization and has been cleared for discharge today. Significant clinical improvement, denies chest pain, palpitations or shortness of breath. Patient will be discharged home today in a stable condition with guarded prognosis. Discharge Medication List HYDROcodone/APAP 10-325MG [Madrid 10-325] 1 tab PO Q6HR PRN 11/06/17 [History] metFORMIN HCL [Glucophage] 1,000 mg PO BID 11/06/17 [History] Nitroglycerin Sl Tabs [Nitrostat] 0.4 mg SUBLINGUAL Q5M PRN #25 tab 11/13/17 [Rx] Insulin Glargine,Hum.rec.anlog [Lantus Solostar Pen] 27 unit SQ HS 11/09/22 [History] Tirzepatide [Mounjaro] 10 mg SQ SA 11/09/22 [History] Rosuvastatin [Crestor] 20 mg PO HS 08/13/23 [History] Bisoprolol/Hydrochlorothiazide [Bisoprolol/Hydrochlorothiazide 5-6.25 mg] 1 tab PO DAILY 08/14/23 [History] Isosorbide Mononitrate ER [Imdur] 30 mg PO DAILY 08/14/23 [History] Olmesartan Medoxomil [Benicar] 40 mg PO DAILY 08/14/23 [History] Sildenafil Citrate [Viagra] 100 mg PO DAILY PRN 08/14/23 [History] amLODIPine [Norvasc] 5 mg PO DAILY 08/14/23 [History] Aspirin 81 mg PO DAILY tab 08/15/23 [Rx] Clopidogrel [Plavix] 75 mg PO DAILY #90 tab 08/15/23 [Rx] The impression and plan of care has been dictated as directed. : I performed a history and examination of this patient, discussed the same with the dictator. I agree with the dictator's note ,documented as a scribe. Any additional findings or plans will be noted.
[2023-08-15] MEDS ORDERED: ATORVASTATIN 40 MG TAB PO SCH (21:00)
[2023-08-18] MEDS ORDERED: TIRZEPATIDE 10 MG/0.5 ML SQ SCH (09:00)
== END 2023-08-15 11:16 | disposition home or self-care (01) ==
LOC: CATHCVL 10:03 → 6NMEDSUR 11:24
PROVIDERS: ADMIT Family Medicine; ATTEND Family Medicine
DX: I25.10 Atherosclerotic heart disease of native coronary artery without angina pectoris (principal); I25.2 Old myocardial infarction; E11.9 Type 2 diabetes mellitus without complications; E78.5 Hyperlipidemia, unspecified; I10 Essential (primary) hypertension; I35.0 Nonrheumatic aortic (valve) stenosis; Z82.49 Family history of ischemic heart disease and other diseases of the circulatory system; Z79.899 Other long term (current) drug therapy; Z79.84 Long term (current) use of oral hypoglycemic drugs; Z79.82 Long term (current) use of aspirin; Z79.02 Long term (current) use of antithrombotics/antiplatelets; T82.855A Stenosis of coronary artery stent, initial encounter
CPT/HCPCS: 96361; 96372; 96374; 99285; 36415; 93005; 92978; 93458; 80053 ×2; 83735; 84484; 85025 ×2; 85610; 85730; G0378 ×2; C9600; C1769 ×2; C1887; C1894; C1753; C1874; C1725 ×3; J2250; J2001; J1644; Q9967; J3010

== ENCOUNTER → 2024-03-07 | Outpatient (CLI) | payer BC ==
--- NOTE | 2024-03-07 10:20 | MR ---
EXAMINATION TYPE: MR cervical spine wo/w con DATE OF EXAM: 03/07/2024 7:41 AM COMPARISON: None. CLINICAL INDICATION: Male, 63 years old with history of I10 Essential hypertension; M54.2, Lt shoulde r and neck pain IV Contrast: 12 cc Gadobutrol (None if empty) TECHNIQUE: Multiplanar, multisequence images of the cervical spine were acquired without contrast and with 12 mL intravenous Gadobutrol gadolinium contrast. Diffusion weighted imaging was performed. Findings: The craniovertebral junction relationships and prevertebral soft tissues are normal. The cervical vertebral segments are normal in height and alignment and there is no fracture or sublux ation. The C2-3 and C3-4 discs are well preserved.. The disc spaces are well preserved at the C4-5 and C6-7 levels but there is mild circumferential bulg e indicating mild degenerative disease. There is mild circumferential bulge and mild narrowing of the C5-6 disc indicating mild to moderate degenerative disc disease. There is a prominent disc spur complex at the C5-6 level on the right compromising the right lateral recess and severely compromising the right C5-6 neural foramina. There is no cervical stenosis in the cervical cord is normal in size and signal intensity. The paraspinal soft tissues are unremarkable. IMPRESSION: 1. Mild to moderate multilevel degenerative disease as described above. 2. Right-sided disc spur complex at the C5-6 level resulting in compromise of the right lateral reces s and severe compromise of the right C5-6 neural foramina. 3. No cervical stenosis or cervical cord abnormality. [facility], Workstation: [id number] 03/07/2024 10:18 AM
== END | disposition home or self-care (01) ==
LOC: RADMRIMAIN 06:49
PROVIDERS: ATTEND Family Medicine
DX: M47.812 Spondylosis without myelopathy or radiculopathy, cervical region (principal); I10 Essential (primary) hypertension; M50.30 Other cervical disc degeneration, unspecified cervical region; M25.512 Pain in left shoulder; R20.0 Anesthesia of skin
CPT/HCPCS: 72156; A9585

== ENCOUNTER → 2024-09-08 | Outpatient (CLI) | payer BC ==
--- NOTE | 2024-09-08 07:48 | MR ---
INDICATION: Patient age:Male; 64 years old; Reason for study: M54.2 CERVICALGIA; [facility]. COMPARISON: MR cervical spine 03/07/2024, CT cervical spine 04/26/2015. TECHNIQUE: Multi planar, multi sequence imaging was performed of the cervical spine. No Gadolinium wa s given. FINDINGS: Alignment: The cervical vertebral bodies have preserved heights. Alignment is within normal limits gi edil patient positioning. Bones: Bone signal is within normal limits. Multilevel anterior osteophytosis. Cord: The spinal cord is unremarkable with regards to their signal intensity and morphology. Discs: Multilevel disc desiccation is present. C2-C3: No significant disc pathology. The spinal canal is patent. No neural foraminal stenosis. C3-C4: No significant disc pathology. The spinal canal is patent. No neural foraminal stenosis. C4-C5: Broad-based disc bulge with minimal effacement of the anterior thecal sac. No significant cent ral canal stenosis. No neural foraminal stenosis. C5-C6: Eccentric right disc bulge extending to the right lateral recess. There is mild effacement of the anterior thecal sac without abutment of the ventral spinal cord. Resultant mild central canal katherine nosis. Bilateral facet arthropathy. The left neural foramen is patent. Moderate to severe right neur al foraminal stenosis. C6-C7: New disc protrusion within the left foraminal zone superimposed upon a broad-based disc bulge. No significant central canal stenosis. The right neural foramen is patent. Severe left neural arlyn inal stenosis. C7-T1: New right subarticular zone small disc protrusion superimposed upon a broad-based disc bulge. Extends into the right foraminal zone. Minimal effacement of the anterior thecal sac. No significant central canal stenosis. The left neural foramen is patent. Moderate to severe right neural foraminal stenosis. Other: None. IMPRESSION: Progression of multilevel disc degeneration as described above with new disc protrusions at C6-C7 and C7-T1. Similar C5-C6 disc bulge. Moderate to severe right neural foraminal stenosis at C5-C6 and C7- T1 with severe left neural foraminal stenosis at C6-C7. [facility], , 09/08/2024 7:46 AM
== END | disposition home or self-care (01) ==
LOC: RADMRIMAIN 06:03
PROVIDERS: ATTEND Physical Medicine & Rehabilitation
DX: M50.223 Other cervical disc displacement at C6-C7 level (principal); M48.02 Spinal stenosis, cervical region; M50.322 Other cervical disc degeneration at C5-C6 level; M99.71 Connective tissue and disc stenosis of intervertebral foramina of cervical region
CPT/HCPCS: 72141